=== PATIENT | male | born 1980 | race Caucasian/White ===

== ENCOUNTER 2022-05-17 11:31 | Day surgery (SDC) | payer BC ==
[2022-05-17] MEDS ORDERED: propofoL 50 ML ONE (12:11)
[2022-05-17] MEDS ORDERED: Lidocaine 2% 5 ML SDV ONE (12:17)
[2022-05-17] MEDS ORDERED: fentaNYL 100 MCG/2 ML SDV ONE (12:17)
[2022-05-17] MEDS ORDERED: Lactated Ringers 1,000 ML IV SCH (13:15)
[2022-05-17] MEDS ORDERED: Propofol 200 MG/20 ML SDV ONE (13:41)
[2022-05-17 15:07] VITALS: BP 112/79; PULSE 68
== END 2022-05-17 15:00 | disposition home or self-care (01) ==
LOC: MW.SDS 11:31
PROVIDERS: ATTEND Surgery
DX: K21.00 Gastro-esophageal reflux disease with esophagitis, without bleeding (principal); K29.70 Gastritis, unspecified, without bleeding; K31.7 Polyp of stomach and duodenum; F17.210 Nicotine dependence, cigarettes, uncomplicated; E66.9 Obesity, unspecified; Z79.899 Other long term (current) drug therapy; Z88.5 Allergy status to narcotic agent; Z68.34 Body mass index [BMI] 34.0-34.9, adult
CPT/HCPCS: 43239; 45378; J2704; J3010; J7120; 00813